=== PATIENT | female | born 1990 | race Two or more races ===

== ENCOUNTER 2019-09-19 11:45 | Emergency (ER) | payer SELFPAY ==
[~2019-09-19] VITALS: Ht 157.5 cm; Wt 81.8 kg
[2019-09-19 12:13] VITALS: Ht 157.5 cm; Wt 81.8 kg
[2019-09-19 12:56] LABS: HCG SERUM POSITIVE (NEGATIVE)
[2019-09-19 12:59] LABS: CALC OSMOLALITY 277 mosm/kg (275-300); CALCIUM 9.2 mg/dL (8.5-10.1); CARBON DIOXIDE 27.4 mmol/L (21.0-32.0); CHLORIDE - SERUM 103 mmol/L (98-107); CREATININE - SERUM 0.7 mg/dL (0.6-1.3); GLUCOSE 88 mg/dL (74-106); POTASSIUM - SERUM 3.6 mmol/L (3.5-5.1); SODIUM 141 mmol/L (136-145); UREA NITROGEN 6 mg/dL (7-18); eGFR NON AFRICAN AMERICAN > 90 mL/min (90-120)
[2019-09-19 13:04] LABS: ALBUMIN 4.2 g/dL (3.4-5.0); ALKALINE PHOSPHATASE 75 U/L (46-116); ALT (SGPT) 28 U/L (10-68); AMYLASE - SERUM 49 U/L (25-115); BILIRUBIN - TOTAL 0.58 mg/dL (0.2-1.3); LIPASE 110 U/L (73-393); PROTEIN - SERUM 8.4 g/dL (6.4-8.2)
[2019-09-19 13:13] LABS: BASOPHILS 0.4 % (0-2); EOSINOPHILS 1.8 % (0-7); HEMATOCRIT 41.4 % (36.0-48.0); HEMOGLOBIN 14.4 g/dL (12-16); IMMATURE GRANULOCYTES 0.3 % (0-5); LYMPHOCYTES 26.6 % (15-50); MCH 31.7 pg (26.0-34.0); MCHC 34.8 g/dL (31.0-37.0); MCV 91.2 fL (80.0-100.0); MEAN PLATELET VOLUME 9.1 fL (7.4-10.4); MONOCYTES 9.8 % (2-11); NEUTROPHILS 61.1 % (40-80); PLATELET COUNT 329 10x3/uL (130-400); RBC 4.54 10x6/uL (4.00-5.40); RDW 12.3 % (11.5-14.5); WBC 13.8 10x3/uL (4.8-10.8)
[2019-09-19 13:24] LABS: APPEARANCE SL CLDY (CLEAR); BACTERIA MODERATE /hpf (NEGATIVE); BILIRUBIN NEGATIVE (NEGATIVE); COLOR PINK (YELLOW); EPITHELIAL CELLS 0-5 /hpf (0-5); GLUCOSE NEGATIVE (NEGATIVE); KETONE NEGATIVE (NEGATIVE); MUCUS <1+ /lpf (NONE SEEN); NITRITE NEGATIVE (NEGATIVE); PROTEIN 1+ mg/dL (NEGATIVE); RED CELLS - URINE >50 /hpf (0-5); SPECIFIC GRAVITY 1.015 (1.005-1.020); WHITE CELLS - URINE 0-5 /hpf (NEGATIVE)
[2019-09-19 13:25] LABS: APTT 29.6 SECONDS (22.8-39.4); INR 1.15 (0.85-1.17); PROTIME 14.2 SECONDS (11.6-15.0)
[2019-09-19 17:28] VITALS: BP 116/65
== END 2019-09-19 17:25 | disposition home or self-care (01) ==
LOC: D.ER 11:45
PROVIDERS: Emergency Medicine
DX: O26.90 Pregnancy related conditions, unspecified, unspecified trimester (principal); N93.9 Abnormal uterine and vaginal bleeding, unspecified; N94.6 Dysmenorrhea, unspecified; Z32.01 Encounter for pregnancy test, result positive; R10.9 Unspecified abdominal pain

== ENCOUNTER 2019-09-21 16:48 | Inpatient (IN) | payer MEDICAID ==
[~2019-09-21] VITALS: Ht 157.5 cm; Wt 81.8 kg
--- NOTE | ~2019-09-21 | OP ---
PATIENT NAME: WENDY BLANKENSHIP MEDICAL RECORD: [id number] LOCATION:[id number] ADMISSION DATE:09/23/19 SURGEON: WALTER PITT DO DATE OF OPERATION: 09/23/2019 PREOPERATIVE DIAGNOSIS: Suspected ruptured ectopic . POSTOPERATIVE DIAGNOSES: Confirmed ruptured ectopic , extensive intra-abdominal adhesions. PRIMARY SURGEON: Walter Pitt DO BLOW TORCH BURNER SURGEON: Dr. Angel ANESTHESIA: Trent Rene CRNA. PROCEDURES: Diagnostic laparoscopy converted to right salpingectomy and lysis of adhesions. FINDINGS: Extensive intra-abdominal adhesions, ruptured right ectopic . SPECIMENS: Right fallopian tube, products of conception. ESTIMATED BLOOD LOSS: 300 cc. IV FLUIDS: 800 cc. URINE OUTPUT: 200 cc clear urine. COMPLICATIONS: None. CONDITION: Stable. PROCEDURE IN DETAIL: The risks, benefits, alternatives and indications of the procedure were discussed with the patient. She voiced an understanding of the procedure and signed the consent. She was taken to the OR where general anesthesia was administered and found to be adequate. She was placed in the dorsal lithotomy position. She was prepped and draped in normal sterile fashion. Urinary catheter was placed. Marcaine was placed in the umbilical fold and a 5-mm incision was created in the umbilicus. The abdomen was elevated and a 5-mm port was placed with the laparoscope for visualization. Pneumoperitoneum was achieved to 15 mmHg; however, due to extensive intra-abdominal adhesions, it was determined that the procedure was unable to be performed laparoscopically and the case was converted to a laparotomy. Pneumoperitoneum was released and the 5-mm port was removed. A Pfannenstiel skin incision was made with the scalpel and carried down to the underlying layer of the fascia with the Bovie. The fascia was incised in the midline and extended laterally. The inferior aspects of the fascial incision was grasped with Deanne clamps and the rectus muscle was dissected off sharply. Attention was then turned to the superior aspect of the fascial incision. The rectus muscle was dissected off in a similar fashion. The rectus muscle was grasped with 2 Allises and down to the level of the peritoneum with the scalpel. The peritoneum was noted to be free of adherent bowel and entered bluntly. Extensive intra-abdominal adhesions were noted and these adhesions OPERATIVE REPORT [id number] BLANKENSHIP,WENDY were taken down with a combination of blunt and sharp dissection. Uterus was elevated out of the pelvis and a ruptured right ectopic was noted in the right fallopian tube. The fallopian tube and ectopic was clamped with a large Jojo and amputated and the fallopian tube site was closed with 0 Vicryl suture with good hemostasis noted. The pelvis was copiously irrigated in order to remove the hemoperitoneum and a moist laparotomy sponge was used to assure complete removal of blood clots and fluid from the abdominal cavity. The site of the removal of the fallopian tube was reinspected and noted to be hemostatic and the uterus was returned back to the pelvis. The rectus muscle was closed with 2-0 Monocryl in a running fashion with good hemostasis. The fascial incision was closed with 0 Vicryl in a running fashion with good hemostasis. The subcutaneous fat was closed with 2-0 plain gut in a running fashion with good hemostasis. The skin was closed in a subcuticular fashion with 3-0 Monocryl and Dermabond covering. All needle, lap, sponge, and instrument counts were correct times 2. The patient tolerated the procedure well and she was taken to the recovery room in stable condition. TRANSINT:[id number] Voice Confirmation ID: [id number] DOCUMENT ID: [id number] WALTER PITT DO CC: [id number] DICTATION DATE: 10/12/19921 SAFETY AIDE: 10/12/19 1037 DIS IN 09/24/[address] [facility] [address] [place] [address]
--- NOTE | 2019-09-21 23:11 | NUR ---
PT BACK FROM ULTRASOUND AT THIS TIME. DENIES NEEDS, CALLL LIGHT WITHIN REACH.
[2019-09-22] VITALS (7 sets, daily range): BP systolic 101–113; BP diastolic 52–73; Ht 157.5 cm; Wt 81.8 kg
[2019-09-22 00:41] LABS: HEMATOCRIT 39.6 % (36.0-48.0); HEMOGLOBIN 13.7 g/dL (12-16); LYMPHOCYTES 37.5 % (15-50); MCH 30.9 pg (26.0-34.0); MCHC 34.6 g/dL (31.0-37.0); MCV 89.2 fL (80.0-100.0); MEAN PLATELET VOLUME 8.8 fL (7.4-10.4); NEUTROPHILS 59.3 % (40-80); PLATELET COUNT 309 10x3/uL (130-400); RBC 4.44 10x6/uL (4.00-5.40); RDW 12.2 % (11.5-14.5); WBC 14.2 10x3/uL (4.8-10.8)
[2019-09-22 00:48] LABS: CALC OSMOLALITY 277 mosm/kg (275-300); CALCIUM 8.6 mg/dL (8.5-10.1); CARBON DIOXIDE 27.5 mmol/L (21.0-32.0); CHLORIDE - SERUM 103 mmol/L (98-107); CREATININE - SERUM 0.7 mg/dL (0.6-1.3); GLUCOSE 105 mg/dL (74-106); SODIUM 139 mmol/L (136-145); UREA NITROGEN 13 mg/dL (7-18); eGFR NON AFRICAN AMERICAN > 90 mL/min (90-120)
[2019-09-22 00:54] LABS: ALBUMIN 4.2 g/dL (3.4-5.0); ALKALINE PHOSPHATASE 84 U/L (46-116); ALT (SGPT) 30 U/L (10-68); BILIRUBIN - TOTAL 0.51 mg/dL (0.2-1.3); PROTEIN - SERUM 8.6 g/dL (6.4-8.2)
--- NOTE | 2019-09-22 02:52 | NUR ---
PT RECEIVED FROM ED VIA WC TO ROOM 1821 AND TRANSFERRED SELF TO BED. PT ACCOMPANIED BY 2 SMALL CHILDREN.
--- NOTE | 2019-09-22 03:45 | NUR ---
THIS RN AND CLINICAL DIETICIAN IN ROOM WITH PT TO OBTAIN INFORMATION FOR QUICK START, ADMISSION ASSESSMENT, SUICIDE RISK, HOME MEDICATIONS, AND PREFERRED PHARMACY.
--- NOTE | 2019-09-22 04:45 | NUR ---
BLOOD AND ANESTHESIA CONSENTS OBTAINED WITH EXPLANATION OF BOTH BY IVORY POLISHER. PT VERBALIZD UNDERSTANDING. RN ALSO AT BEDSIDE.
[2019-09-22 04:46] LABS: BASOPHILS 0.3 % (0-2); EOSINOPHILS 2.7 % (0-7); HEMATOCRIT 40.6 % (36.0-48.0); HEMOGLOBIN 13.9 g/dL (12-16); IMMATURE GRANULOCYTES 0.2 % (0-5); LYMPHOCYTES 40.3 % (15-50); MCH 31.4 pg (26.0-34.0); MCHC 34.2 g/dL (31.0-37.0); MONOCYTES 5.2 % (2-11); NEUTROPHILS 51.3 % (40-80); PLATELET COUNT 302 10x3/uL (130-400); RBC 4.42 10x6/uL (4.00-5.40); RDW 12.3 % (11.5-14.5); WBC 13.2 10x3/uL (4.8-10.8)
[2019-09-22 04:52] LABS: MCV 91.9 fL (80.0-100.0)
[2019-09-22 04:55] LABS: APTT 29.8 SECONDS (22.8-39.4); INR 1.18 (0.85-1.17); PROTIME 14.5 SECONDS (11.6-15.0)
--- NOTE | 2019-09-22 05:00 | NUR ---
ADMISSION ASSESSMENT HISTORY, MED REC, PREFERRED PHARMACY, SUICIDE RISK, VS, AND ASSESSMENT COMPLETE WITH ASSISTANCE FROM HANG GLIDING INSTRUCTOR. RN REMAINED AT BEDSIDE TO ASK QUESTIONS TO HANG GLIDING INSTRUCTOR TO BE ASKED TO PT AND TO RECEIVE ANSWERS GIVEN TO HANG GLIDING INSTRUCTOR FROM PT.
--- NOTE | 2019-09-22 05:18 | NUR ---
CALL PLACED TO DR. SCOTT.
--- NOTE | 2019-09-22 05:30 | NUR ---
DR. SCOTT RETURNED CALL TO UNIT. INFORMED MD OF INFORMATION OBTAINED FROM PT THROUGH INSTRUCTOR WEAVING. INFORMED HIM THAT PT REPORTS THAT SHE CAME TO [facility] ON THURSDAY WITH HEAVY BLEEDING, WAS TOLD SHE WAS AND WAS GIVEN A SHOT. I INFORMED HIM THAT THE PT IS REPORTING THAT THE BLEEDING IS LIGHT SINCE RECEIVING THE SHOT, BUT SHE IS C/O LOWER ABD PAIN AND PAIN IN HER BACK ON THE LEFT SIDE THAT SOMETIMES RADIATES TO HER RIGHT SIDE. I INFORMED HIM THAT SHE IS RATING IT AT 5/10. LAB RESULTS WERE GIVEN TO HIM. NEW ORDERS RECEIVED TO START NS AT 125ML/HR AND A DILAUDID AIRFIELD MANAGER 0.2MG Q10 MINUTES WITH A 4MG LOCKOUT. HE ALSO STATED THAT HE WILL PUT IN AN ORDER TO HAVE HER SCANNED. HE WANTS HER TO REMAIN NPO AT THIS TIME.
--- NOTE | 2019-09-22 05:48 | NUR ---
DILAUDID FUR MATCHER INITIATED PER DR. SCOTT'S ORDER. PT INSTRUCTED ON USE OF FUR MATCHER BUTTON USING ITRANSLATE. PER ITRANSLATE, PT ACKNOWLEDGES AND PUSHES FUR MATCHER BUTTON AT THIS TIME. BED IN LOW POSITION, SRUP X2, CALL LIGHT WITHIN PTS REACH.
--- NOTE | 2019-09-22 07:00 | NUR ---
SBAR HANDOFF RECEIVED FROM OMAR FERGUSON. PATIENT REMAINS STABLE IN BED WITH NO SIGNS OF COMPLICATIONS OR DISTRESS. REPORTS PAIN AT LEVEL 0 ON 0-10 SCALE. DILAUDID DOCUMENT SPECIALIST INFUSING AT RX PARAMETERS TO RIGHT AC PIV WHICH IS ALSO INFUSING NACL AT 125ML/HR PER IV PUMP; NO SIGNS OF COMPLICATIONS AT IV INSERTION SITE OR PERIPHERALLY. SLEEPING BUT AWAKENS W/VERBAL STIMULI. SKIN WARM DRY AND PINK.
--- NOTE | 2019-09-22 07:35 | NUR ---
DR David PITT AT BEDSIDE SPEAKING MAORI TO PATIENT AND GETTING INFORMED CONSENT FOR POSSIBLE SURGERY.
--- NOTE | 2019-09-22 07:45 | NUR ---
VSS. HOMANS NEGATIVE. BBS= AND CTA. NO SIGNS OF DISTRESS. BOWEL SOUNDS DISTANT ALL 4 ABD QUADRANTS. REMAINS NPO.
--- NOTE | 2019-09-22 08:45 | NUR ---
CONT SLEEPING. O2 SAT 94% WHEN ASLEEP, 97% WHEN AWAKENED. SKIN WARM DRY AND PINK. NO SIGNS OF COMPLICATIONS. SKIN WARM DRY AND PINK.
--- NOTE | 2019-09-22 09:45 | NUR ---
DR David PITT AT BEDSIDE EXPLAINING TO PATIENT IN [place] THAT SHE LIKELY HAS A RUPTURED ECTOPIC AND THAT SURGERY WILL BE REQUIRED. PATIENT REMAINS STABLE; NO SIGNS OF DISTRESS NOTED OR REPORTED. SKIN WARM DRY AND PINK. O2 SAT 95% WHEN SLEEPING, 97% WHEN AWAKE. IV PATENT.
--- NOTE | 2019-09-22 10:15 | NUR ---
ASSISTED TO BATHROOM TO VOID 200ML CLEAR SILVANA URINE. LANGUAGE LINE CALLED TO VERIFY PATIENT UNDERSTANDS SHE IS GOING TO SURGERY, WILL HAVE A LAPOROSCOPIC ENTRY THRU UMBILICUS BUT POSSIBILITY OF A BIGGER INCISION IF NEEDED. ALSO DID POST OP PROCEDURES TEACHING: TCDB Q 1 HR, ASK FOR PAIN AND NAUSEA MEDS, POSSIBILITY OF URINARY CATHETER. PATIENT VERBALIZES UNDERSTANDING OF SAME PER SHOT POLISHER AND INSPECTOR DARLENE # [id number]; ALL QUESTIONS ANSWERED. ASSISTED BACK TO BED AND TO GET BRA AND PANTIES OFF. PIV PATENT W/NO SIGNS COMPLICATIONS. REPORTS PAIN AT LEVEL 4 AFTER GETTING UP AND BACK TO BED. MANAGER ADVERTISING BUTTON OFFERED; PATIENT PUSHED FOR DOSE.
--- NOTE | 2019-09-22 11:15 | NUR ---
premeds given. czech speaking friend at bedside. patient requests to void again but took receptacle out of toilet. states she voided. ready for o.r.
--- NOTE | 2019-09-22 11:25 | NUR ---
to OR PER BED, ACCOMPANIED BY OR TECHS. REMAINS NPO EXCEPT FOR 2 SIPS WATER WITH FRANCOIS. VSS.
--- NOTE | 2019-09-22 16:07 | NUR ---
RECEIVED FROM OR PER BED ON 2L/M O2; PIV RIGHT AC PATENT WITH RL 125ML/HR PER IV PUMP; MCCARTNEY PATENT W/CLEAR SILVANA URINE. ABD DSG CDI TO LOWER TRANSVERSE ABD; DERMOBOND INTACT TO UMBILICAL INCISION WITH MARGINS WELL APPROXIMATED. VSS. COMPLAINS OF PAIN AND SLIGHT NAUSEA. SCD BLE.
--- NOTE | 2019-09-22 16:10 | NUR ---
SUPERVISOR TITLE 031005 NOTIFIED TO ORIENT PATIENT TO POST OP PROCEDURES. NO SIGNS OF COMPLICATION. VSS. BBS= AND CTA. NO BOWEL SOUNDS AUSCULTATED. SKIN WARM DRY AND PINK, SLIGHTLY PALE. GARCIA.
--- NOTE | 2019-09-22 16:25 | NUR ---
DANNI ICE CHIPS AND CLEAR LIQ WELL. DENIES NAUSEA. INCENTIVE SPRIROMETRY TO 1000 AND SPLINTING ABD INCISION FOR COUGHING.
--- NOTE | 2019-09-22 17:30 | NUR ---
DR PITT AT BEDSIDE. UOP 50ML. REMAINS STABLE WITH NO SIGNS OF COMPLICATIONS.
--- NOTE | 2019-09-22 18:00 | NUR ---
REMAINS STABLE WITH NO SIGNS OF DISTRESS NOTED OR REPORTED. REPORTS PAIN WHEN AWAKE BUT FALLS TO SLEEP EASILY. VSS. MOVING IN BED INDEPENDENTLY. IV PATENT
--- NOTE | 2019-09-22 18:30 | NUR ---
SEE VITAL SIGNS SHEET FOR POST OP VITALS.
--- NOTE | 2019-09-22 19:45 | NUR ---
PT RESTING IN BED. COMMUNICATED WITH PT VIA VIRTUAL CUSTOMER ASSISTANT SERVICES REGARDING POC WHICH INCLUDED HEAD TO TOE ASSESSMENT, VS, PAIN MANAGEMENT, FC, CL DIET, TCDB, SCDS,IV. QUESTIONS WERE ANSWERED AT THE TIME. BS CLEAR IN ALL LOBES. HYPOACTIVE BS X4 QUADRANTS, LOW TRANSVERSE ABD INCISION COVERED WITH DRESSING C/D/I. FC TO GRAVITY DRAINING CONCENTRATED YELLOW URINE AND SECURED TO LEG WITH CATH SECURE. SMALL AMOUNT OF VAGINAL BLEEDING NOTED ON PERIPAD. FC AND PERIPAD DONE AT THIS TIME. SCDS TO BLE. IV PATENT AND INFUSING NS @125ML/HR. NO REDNESS OR TENDERNESS NOTED TO SITE. ICE CHIPS AND CLEAR LIQUIDS PROVIDED. PT TCDP USING PILLOW FOR SUPPORT WITH INSTRUCTION FROM RN. PT VERBALIZED UNDERSTANDING OF POC THROUGH ASSEMBLY LINE BRAZER. BED IN LOW POSITION, SRUP X2, CALL LIGHT WITHIN PTS REACH. ASSEMBLY LINE BRAZER UNDERSTANDING POC. BED
--- NOTE | 2019-09-22 20:14 | NUR ---
MORPHINE 2MG SIVP GIVE FOR C/O INCISIONAL PAIN.IV PATENT.
--- NOTE | 2019-09-22 21:05 | NUR ---
PT RESTING IN BED WITH EYES CLOSED. PT EASILY AROUSED TO TCDB. PT DENIES ANY C/O PAIN AT THIS TIME. BED IN LOW POSITION, SRUP X2, CALL LIGHT WITHIN PTS REACH.
--- NOTE | 2019-09-22 22:00 | NUR ---
PT RESTING IN BED. VS OBTAINED. ICE CHIPS AND CL PROVIDED. PT DENIES ANY C/O PAIN. BED IN LOW POSITION, SRUP X2, CALL LIGHT WITHIN PTS REACH.
--- NOTE | 2019-09-22 23:00 | NUR ---
PT RESTING IN BED. VS OBTAINED. FC EMPTIED. PT TCDP AND REPOSTIONED TO HER LEFT SIDE WITH PILLOW PLACED TO HER BACK FOR SUPPORT. PT DENIES ANY C/O PAIN AT THIS TIME. SCDS ON AND WORKING. BED IN LOW POSITION. SRUP X2. CALL LIGHT WITHIN PTS REACH.
[2019-09-23] VITALS (7 sets, daily range): BP systolic 96–111; BP diastolic 47–62
--- NOTE | 2019-09-23 00:20 | NUR ---
PT RESTING IN BED. VS OBTAINED. FC EMPTIED. PERIPAD CHANGED. SCANT AMOUNT OF VAGINAL BLEEDING NOTED. FRESH ICE PACK PLACED TO ABD INCISION. IV PATENT AND WITHOUT REDNESS OR TENDERNESS. PT INSTRUCTED ON USE OF IS AND PROVIDED RETURN DEMONSTRATION. ICE CHIPS AND CL PROVIDED. BED IN LOW POSITION. SRUP X2. CALL LIGHT WITHIN PTS REACH.
--- NOTE | 2019-09-23 02:01 | NUR ---
PT RESTING COMFORTABLY IN BED WITH EYES CLOSED. NO DISTRESS NOTED. NEW BAG OF IV FLUID HUNG. BED IN LOW POASITION. SRUP X2. CALL LIGHT WITHIN PTS REACH.
--- NOTE | 2019-09-23 04:20 | NUR ---
PT RESTING COMFORTABLY IN BED. VS OBTAINED. FC EMPTIED. PERIPAD CHANGED. NO VAGINAL BLEEDING NOTED. FRESH ICE PACK PLACED TO ABD INCISION. SCHEDULED TORADOL GIVEN SIVP PER MD ORDER. PT TCDB AND REPOSITIONED TO A RIGHT TILT. ICE CHIPS, CL DRINK, AND JELLO PROVIDED. BED IN LOW POSITION. SRUP X2. CALL LIGHT WITHIN PTS REACH.
--- NOTE | 2019-09-23 06:15 | NUR ---
PT RESTING IN BED WITH EYES CLOSED BUT EASILY AROUSED WHEN RN ENTERED ROOM. PERIPAD CHECKED AND NO VAGINAL BLEEDING NOTED. ABD INCISION COVERED WITH DRESSING C/D/I. FC EMPTIED. NO REQUEST MADE. BED IN LOW POSITION. SRUP X2. CALL LIGHT WITHIN PTS REACH.
[2019-09-23 06:48] LABS: BASOPHILS 0.1 % (0-2); EOSINOPHILS 0.1 % (0-7); HEMATOCRIT 34.9 % (36.0-48.0); HEMOGLOBIN 11.8 g/dL (12-16); IMMATURE GRANULOCYTES 0.2 % (0-5); LYMPHOCYTES 14.3 % (15-50); MCH 31.1 pg (26.0-34.0); MCHC 33.8 g/dL (31.0-37.0); MCV 92.1 fL (80.0-100.0); MEAN PLATELET VOLUME 9.2 fL (7.4-10.4); NEUTROPHILS 77.3 % (40-80); PLATELET COUNT 286 10x3/uL (130-400); RBC 3.79 10x6/uL (4.00-5.40); RDW 12.2 % (11.5-14.5)
[2019-09-23 06:59] LABS: ALKALINE PHOSPHATASE 53 U/L (46-116); BILIRUBIN - TOTAL 0.46 mg/dL (0.2-1.3); CARBON DIOXIDE 23.1 mmol/L (21.0-32.0); CHLORIDE - SERUM 108 mmol/L (98-107); CREATININE - SERUM 0.6 mg/dL (0.6-1.3); GLUCOSE 110 mg/dL (74-106); POTASSIUM - SERUM 3.6 mmol/L (3.5-5.1); PROTEIN - SERUM 6.5 g/dL (6.4-8.2); SODIUM 140 mmol/L (136-145); eGFR NON AFRICAN AMERICAN > 90 mL/min (90-120)
[2019-09-23 07:01] LABS: ALBUMIN 3.1 g/dL (3.4-5.0); ALT (SGPT) 17 U/L (10-68); CALC OSMOLALITY 276 mosm/kg (275-300); UREA NITROGEN 4 mg/dL (7-18)
[2019-09-23 07:18] LABS: WBC 17.7 10x3/uL (4.8-10.8)
--- NOTE | 2019-09-23 07:54 | NUR ---
REPORT RECIEVED. PT SITTING UP IN BED. BREAKFAST TRAY SET UP FOR PT, AND POSITIONED PT TO BE ABLE TO EAT. RR EVEN AND UNLABORED. NO DISTRESS NOTED. BED LOCKED AND IN LOWEST POSITION, CALL LIGHT WITHIN REACH. WILL CTM
--- NOTE | 2019-09-23 09:37 | NUR ---
DR. PITT IN ROOM W/ PT AT THIS TIME.
--- NOTE | 2019-09-23 09:51 | NUR ---
SL PTS IV AND DC MCCARTNEY WITH 500CC OUTUT. PT REPORTS A PAIN LEVEL OF 7/10. ADMINISTERED PAIN MEDS PER ORDER AT THIS TIME. WILL CTM
--- NOTE | 2019-09-23 10:21 | NUR ---
ASSISTED PT TO BATH. PT WAS IN ALOT OF PAIN DURING TRANSFER. COMPLAINED OF LOWER BACK PAIN. SHE HAD A SCANT AMOUNT OF BLOOD ON HER PAD. CHANGED AT THIS TIME. PT VOIDED 200CC OF PALE URINE WITH SMALL CLOTS PRESENT. ASSISTED PT BACK TO BED. APPLIED ICE TO LOWER ABD ICISION. WILL CTM
--- NOTE | 2019-09-23 11:20 | NUR ---
ANESTH. IN ROOM W/ PT AT THIS TIME.
--- NOTE | 2019-09-23 13:00 | NUR ---
PT SITTING UP IN BED AWAKE & ALERT.SRUPX2 CALL LIGHT W/IN REACH.
--- NOTE | 2019-09-23 14:00 | NUR ---
PT ASSSISTED UP TO RR W/ SCANT AMOUNT OF BLOOD ON PAD. PT C/O ABD. PAIN SEE EMAR FOR PAIN MEDS GIVEN.
--- NOTE | 2019-09-23 16:13 | NUR ---
ASSISTED PT TO BATHROOM. PT HAD A SCANT AMOUNT OF BLOOD TO PAD. CHANGED PAD. VSS. MOTRIN GIVEN AT THIS TIME PER JAN. WILL CTM
--- NOTE | 2019-09-23 17:00 | NUR ---
PT ASSSITED UP TO RESTROOM. LINENS CHANGED WHILE IN RESTROOM. PT WALKED AROUND ROOM AFTER USING RESTROOM, PT REFUSES TO WALK IN SR AT THIS TIME.
--- NOTE | 2019-09-23 19:50 | NUR ---
PT RESTING IN BED WITH VISITORS ON COUCH. ALL COMMUNICATION WITH PT WAS DONE WITH THE USE OF THE DESIGNATED SOCIAL MEDIA COMMUNITY MANAGER. SHIFT ASSESMENT COMPLETE PER FLOW SHEET. VSS. BS CLEAR. ABDOMEN DISTENDED BUT SOFT. BS HYPOACTIVE IN ALL 4 QUADRANTS. PT REPORTS THAT SHE HAS PASSED FLATUS. INCISION TO UMBILICUS C/D/I WITH DERMABOND. LOW TRANSVERSE ABD INCISION C/D/I WITH DERMABOMD. FRESH ICE PACK PLACED TO INCISION SITE. SCANT AMOUNT OF VAGINAL BLEEDING NOTED TO PERIPAD. SCDS ON BLE, BUT NOT WORKING. NO EDEMA NOTED TO BLE. SL TO RIGHT AC WITHOUT REDNESS OR TENDERNESS. PT C/O PAIN TO HER NECK AND SHOULDER ON THE RIGHT SIDE AND IS USING ICE FOR COMFORT. POPSICLE GIVEN PER PT REQUEST FOR SORE THROAT. ICE PITCHER FILLED. POC DISCUSSED. PT DENIED ANY QUESTIONS. PT INSTRUCTED TO USE CALL LIGHT. BED IN LOW POSITION. SRUP X2. CALL LIGHT WITHIN PTS REACH. PTS BLOOD TYPED CHECKED IN CHART AND IS O+.
--- NOTE | 2019-09-23 21:26 | NUR ---
SITTING ON SOFA WITH FRIEND SMILING AND LAUGHING. FRIEND STATES THAT SHE HAS BEEN WALKING IN ROOM ALSO. INFORMED PT. THAT SHE NEEDS TO MAKE POSITION CHANGES GRADUALLY IE: SIT ON SIDE OF BED PRIOR TO GETTING UP INSTEAD OF RAPIDLY GETTING UP. ALSO WHEN SITTING TO STANDING. FRIEND TRANSLATED FOR PT. INFORMATION GIVEN. PT. STATES "OK" TO INFORMATION. EXPLAINED THAT SLOW CHANGES IN POSITION CAN DECREASE CHANCES OF DIZZINESS.
--- NOTE | 2019-09-23 21:35 | NUR ---
DR. PITT ON UNIT AND VERIFIED THAT IV CAN BE SALINE LOCKED. REPORTS TO YES SALINE LOCK IV. GENERAL REPORT ON PATIENT STATUS GIVEN.
--- NOTE | 2019-09-23 21:43 | NUR ---
MOTRIN GIVEN SCHEDULED. PT. REPORTS PAIN WAS A 3 OF 10 ON PAIN SCALE WHICH SHE BOTH VERBALIZED AND SHOWED BY HOLDING UP THREE FINGERS. TALKING ON PHONE AT PRESENT.
--- NOTE | 2019-09-23 21:47 | NUR ---
ADDITIONAL POPSICLE SERVED.
--- NOTE | 2019-09-23 22:30 | NUR ---
PT RESTING IN ED. INFORMATION OBTAINED FROM PT USING DESIGNATION AUTOMOTIVE ELECTRICAL HELPER LINE. VSS. PT DENIES ANY C/O PAIN. PT REQUEST FOR HER SL TO BE REMOVED. EXPLAINED TO HER THAT SHE HAS LAB WORK SCHEDULED FOR THE AM AND IT IS RECOMMENDED THAT THE SL BE LEFT IN PLACE UNTIL LAB RESULTS ARE BACK. SL FLUSHED AT THIS TIME WITHOUT DIFFICULTY. NO REDNESS OR TENDERNESS TO SITE. FRESH ICE PACK PLACED TO ABD INCISION. QUESTIONS ANSWERED. PT VERBALIZED UNDERSTANDING OF POC. BED IN LOW POSITION. SRUP X2. CALL LIGHT WITHIN PTS REACH.
--- NOTE | 2019-09-24 00:15 | NUR ---
PT RESTING IN BED WITH EYES CLOSED. NO DISTRESS NOTED. CALL LIGHT WITHIN PTS REACH.
--- NOTE | 2019-09-24 01:20 | NUR ---
PT RESTING IN BED WITH EYES CLOSED. NO DISTRESS NOTED. CALL LIGHT WITHIN PTS REACH.
[2019-09-24 03:55] VITALS: BP 115/72
--- NOTE | 2019-09-24 03:55 | NUR ---
VSS. PT ASSTISTED UP TO BATHROOM AND IS VOIDING WITHOUT DIFFICULTY. PT BACK TO BED AND IS C/O INCISIONAL PAIN. WILL PROVIDE PERCOCET AND SCHEDULED MOTRIN. WATER PITCHER FILLED. FRESH ICE PACK PLACED TO ABD INCISION. BED IN LOW POSITION. SRUP X2. CALL LIGHT WITHIN PTS REACH.
--- NOTE | 2019-09-24 04:10 | NUR ---
PERCOCET 5 X1 TABLET AND MOTRIN 600MG GIVEN PO FOR C/O INCISIONAL PAIN.
--- NOTE | 2019-09-24 05:30 | NUR ---
PT RESTING IN BED WITH EYES CLOSED. NO DISTRESS NOTED. CALL LIGHT WITHIN PTS REACH.
--- NOTE | 2019-09-24 06:20 | NUR ---
PT RESTING IN BED WITH EYES CLOSED. NO DISTRESS NOTED. CALL LIGHT WITHIN PTS REACH.
--- NOTE | 2019-09-24 06:55 | NUR ---
PHARMACY NOTIFIED OF PERCOCET AND MOTRIN GIVEN AT 0410 TO PT FOR C/O INCISIONAL PAIN NOT DOCUMENTING ON EMAR. PHARMACIST ON DUTY STATED TO MAKE A NARRATIVE NOTE.
[2019-09-24 07:10] LABS: BASOPHILS 0.2 % (0-2); EOSINOPHILS 2.4 % (0-7); HEMATOCRIT 37.1 % (36.0-48.0); HEMOGLOBIN 12.5 g/dL (12-16); IMMATURE GRANULOCYTES 0.2 % (0-5); LYMPHOCYTES 40.6 % (15-50); MCH 31.3 pg (26.0-34.0); MCHC 33.7 g/dL (31.0-37.0); MCV 92.8 fL (80.0-100.0); MEAN PLATELET VOLUME 9.1 fL (7.4-10.4); MONOCYTES 7.7 % (2-11); NEUTROPHILS 48.9 % (40-80); PLATELET COUNT 284 10x3/uL (130-400); RDW 12.6 % (11.5-14.5); WBC 13.1 10x3/uL (4.8-10.8)
--- NOTE | 2019-09-24 07:38 | NUR ---
AM ASSESSMENT COMPLETED, NAD NOTED. VSS, AFEBRILE, AMBULATORY IN ROOM AND UP TO BR, VOIDS WITHOUT DIFFICULTY, LUNGS CTAB, HEART RRR, ABD MILDLY DISTENDED BUT SOFT, PASSING FLATUS, GARCIA FREELY, NEGATIVE STANFORD'S SIGN B LE. CALL LIGHT IN EASY REACH, BED IN LOW POSITION, SIDE RAILS UP X2, WILL MONITOR FOR CHANGE IN STATUS.
--- NOTE | 2019-09-24 07:48 | NUR ---
SCHEDULED IBUPROFEN GIVEN PER MD ORDERS. WHEN ASKED ABOUT PAIN SCALE, PT STATES "SIX". WILL MONITOR.
--- NOTE | 2019-09-24 08:34 | NUR ---
PT USING CALL LIGHT FOR ASSISTANCE. REQUESTS LIGHTS TURNED OFF AND LINENS PULLED UP OVER HER WHILE SHE LIES IN BED. CONSUMED 100% BREAKFAST PROVIDED, CUP OF ICE WATER PROVIDED UPON REQUEST. DENIES PAIN AT PRESENT. NO OTHER NEEDS REQUESTED, WILL MONITOR.
--- NOTE | 2019-09-24 09:50 | NUR ---
ROUNDS COMPLETED, PT OOB TO BR, VOIDING WITHOUT DIFFICULTY AND PASSING FLATUS, NO BM YET. ENCOURAGED AMBULATION IN HALLS, PT STATES UNDERSTANDING. CALL LIGHT IN EASY REACH OF PT. WILL MONITOR.
--- NOTE | 2019-09-24 10:35 | NUR ---
ROUNDS COMPLETED, PT LYING SUPINE IN BED, RESP EVEN AND UNLABORED, NAD NOTED. WILL MONITOR. CALL LIGHT IN EASY REACH.
[2019-09-24 11:14] VITALS: BP 111/59
--- NOTE | 2019-09-24 11:24 | NUR ---
ROUNDS COMPLETED, CUP OF ICE WATER, JELLO, AND ICE PACK OVERLAY REFRESHED. VSS. AFEBRILE. PT C/O DISCOMFORT TO RIGHT A/C SITE, SALINE LOCK DISCONTINUED WITH NOTED BENT CATHETER ON REMOVAL. PRESSURE DRESSING APPLIED TO SITE, TOLERATES PROCEDURE WELL. LOW TRANSVERSE INCISION CDI WITH DERMABOND, MILD TENDERNESS TO TOUCH, NOTED DISCOLORATION/BRUISING TO SUPERIOR ASPECT OF INCISION ON LEFT SIDE. NO OOZING/DRAINAGE/EDEMA OR WARMTH NOTED. BOWEL SOUNDS ACTIVE, PT DENIES BM. GARCIA FREELY, ENCOURAGED TO AMBULATE, PT REFUSES NOW, WILL AMBULATE AFTER LUNCH.
--- NOTE | 2019-09-24 12:08 | NUR ---
PT UP TO BR TO VOID, PRN MED GIVEN FOR C/O INCISIONAL PAIN. CUP OF WATER PROVIDED PER REQUEST. WILL MONITOR.
--- NOTE | 2019-09-24 13:50 | NUR ---
SPOKE WITH DR PITT VIA TELEPHONE AND RELAYED PT DESIRE TO GO HOME THIS EVENING LONG SHE HAD PAIN MEDS TO TAKE. DR PITT GIVES ORDER FOR DISCHARGE AND THIS IS RELAYED TO PT. PT STATES UNDERSTANDING AND STATES SOMEONE IS COMING TO PICK HER UP BETWEEN 4:30-6PM TODAY.
[2019-09-24] MEDS ORDERED: PERCOCET 5-3251 TAB PO (14:21)
--- NOTE | 2019-09-24 14:35 | NUR ---
ROUNDS COMPLETED, LYING IN BED WITH LIGHTS DIMMED, RESP EVEN AND UNLABORED, NAD NOTED, DENIES NEEDS/CONCERNS. CALL LIGHT IN EASY REACH.
--- NOTE | 2019-09-24 15:00 | NUR ---
vss. afebrile, pt reporting being easily startled and difficulty sleeping, concerns with boyfriend after ectopic . concerns that "i don't feel right." lungs ctab, heart rrr without murmur or s3/s4, bp 115/69, hr 80, rr 16 regular and even. color pink, peripheral pulses strong/=/+2 b le, cap refill less than 2 seconds/brisk return. utilized translation line to communicate home care, need to call clinic at [phone] thursday for appointment in 2 weeks that will be free to her. encouraged use of aromatherapy, walking, prayer/meditation to manage anxiety and to notify doctor if feeling blue/hopeless/depressed and to go to er if excessive bleeding more than 1 pad per hour, chest pain, shortness of breath, red/swollen/hot leg. copies of home care/dc instructions given in swazi; pt states understanding with all questions answered to pt satisfaction. states family will come later today to take her home. pt now ambulating in mayer and smiles with this rn on passing in hallway.
--- NOTE | 2019-09-24 16:20 | NUR ---
ROUNDS COMPLETED, PT RESTING WITH EYES CLOSED AND FULLY DRESSED ON COUCH IN ROOM, PT FRIEND "LAUREEN" ALSO CALLS UNIT INQUIRING ABOUT WHEN SHE CAN BE DISCHARGED, INFORMED THAT PT HAS RECEIVED DISCHARGE INSTRUCTIONS AND ABLE TO GO HOME ANY TIME NOW. STATES WILL BE COMING BY AFTER SHE GETS OFF WORK AND WILL CALL UNIT SO THIS RN CAN TAKE PT IN WHEELCHAIR TO MEET AT FRONT OF HOSPITAL.
--- NOTE | 2019-09-24 16:53 | NUR ---
PT GIVEN PRN MED FOR C/O PAIN. ENCOURAGED TO EAT DINNER PRIOR TO FRIEND COMING TO PICK HER UP FROM HOSPITAL. PT STATES UNDERSTANDING AND IS EATING DINNER NOW.
--- NOTE | 2019-09-24 17:18 | NUR ---
pt discharged to private auto with auto [employer] driver naheed santiago with all personal belongings, denies pain at present. reviewed discharge instructions including prn use of ibuprofen per package directions, pp blues and depression risks, and need for filling prn pain med prescription at either [facility] or [facility] pharmacy that is open at this time. family/friend states understanding of all instructions provided including calling clinic thursday for follow up appointment scheduling. nad noted.
== END 2019-09-24 17:18 | disposition home or self-care (01) | DRG 819 ==
LOC: D.ER 16:48 → D.WS 09-22 01:49 → OBSVTIME 09-22 01:49 → D.WS 09-22 01:49 → D.LD 09-23 16:56
PROVIDERS: Family Medicine; Student in an Organized Health Care Education/Training Program; ADMIT Obstetrics & Gynecology; ATTEND Obstetrics & Gynecology
PROC: 10T20ZZ Resection of Products of Conception, Ectopic, Open Approach (ICD-10-PCS; principal; 2019-09-22 10:15)
DX: O00.101 Right tubal pregnancy without intrauterine pregnancy (principal); K66.0 Peritoneal adhesions (postprocedural) (postinfection)

== ENCOUNTER → 2019-10-07 | Emergency (ER) | payer SELFPAY ==
[~2019-10-07] VITALS: Ht 157.5 cm; Wt 81.8 kg
[~2019-10-07] MED LIST: KEFLEX500 MG PO; PERCOCET 5-3251 TAB PO
[2019-10-07 16:25] VITALS: BP 131/77; Ht 157.5 cm; Wt 81.8 kg
== END | disposition home or self-care (01) ==
LOC: D.ER 15:49
DX: Z98.890 Other specified postprocedural states (principal)

== ENCOUNTER 2019-10-12 18:21 | Emergency (ER) | payer SELFPAY ==
[~2019-10-12 18:21] MED LIST changes: -KEFLEX500 MG PO
[2019-10-12 18:25] VITALS: BP 123/59; Ht 157.5 cm
[2019-10-12] MEDS ORDERED: KEFLEX500 MG PO (19:59)
== END 2019-10-12 20:40 | disposition home or self-care (01) ==
LOC: D.ER 18:21
DX: G89.18 Other acute postprocedural pain (principal); Z91.19 Patient's noncompliance with other medical treatment and regimen

== ENCOUNTER 2020-01-20 19:35 | Emergency (ER) | payer SELFPAY ==
[~2020-01-20] VITALS: Ht 157.5 cm; Wt 91.0 kg
[~2020-01-20 19:35] MED LIST changes: +KEFLEX500 MG PO
[2020-01-20 19:46] VITALS: Ht 157.5 cm; Wt 91.0 kg
[2020-01-20] MEDS ORDERED: CIPRODEX OTIC7.5 ML LEFT EAR (20:57)
[2020-01-20 21:13] VITALS: BP 123/80
== END 2020-01-20 21:10 | disposition home or self-care (01) ==
LOC: D.ER 19:35
DX: H61.22 Impacted cerumen, left ear (principal)

== ENCOUNTER 2021-01-13 08:43 | Emergency (ER) | payer MEDICAID ==
[~2021-01-13] VITALS: Ht 157.5 cm; Wt 81.8 kg
[~2021-01-13 08:43] MED LIST changes: +CIPRODEX OTIC7.5 ML LEFT EAR
[2021-01-13 08:57] VITALS: Ht 157.5 cm; Wt 81.8 kg
[2021-01-13 09:15] LABS: BASOPHILS 0.3 % (0-2); EOSINOPHILS 2.5 % (0-7); HEMATOCRIT 45.1 % (36.0-48.0); HEMOGLOBIN 15.6 g/dL (12-16); IMMATURE GRANULOCYTES 0.3 % (0-5); LYMPHOCYTE ABS# 4.42 10x3/uL (1.18-3.74); LYMPHOCYTES 29.5 % (15-50); MCH 31.1 pg (26.0-34.0); MCHC 34.6 g/dL (31.0-37.0); MEAN PLATELET VOLUME 9.1 fL (7.4-10.4); MONOCYTES 4.7 % (2-11); NEUTROPHIL ABS# 9.42 10x3/uL (1.56-6.13); NEUTROPHILS 62.7 % (40-80); PLATELET COUNT 315 10x3/uL (130-400); RBC 5.01 10x6/uL (4.00-5.40); RDW 12.9 % (11.5-14.5)
[2021-01-13 09:22] LABS: BILIRUBIN NEGATIVE (NEGATIVE); KETONE NEGATIVE (NEGATIVE); NITRITE NEGATIVE (NEGATIVE); UROBILINOGEN NORMAL mg/dL (< 2)
[2021-01-13 09:24] LABS: CALC OSMOLALITY 267 mosm/kg (275-300); CALCIUM 9.4 mg/dL (8.5-10.1); CARBON DIOXIDE 25.8 mmol/L (21.0-32.0); CHLORIDE - SERUM 100 mmol/L (98-107); CREATININE - SERUM 0.6 mg/dL (0.6-1.3); GLUCOSE 128 mg/dL (74-106); POTASSIUM - SERUM 3.9 mmol/L (3.5-5.1); SODIUM 134 mmol/L (136-145); UREA NITROGEN 6 mg/dL (7-18); eGFR NON AFRICAN AMERICAN > 90 mL/min (90-120)
[2021-01-13 09:25] LABS: HCG URINE POSITIVE (NEGATIVE)
[2021-01-13 09:53] LABS: ALKALINE PHOSPHATASE 74 U/L (30-120); ALT (SGPT) 32 U/L (10-68); AMYLASE - SERUM 49 U/L (25-115); BILIRUBIN - TOTAL 0.33 mg/dL (0.2-1.3); HCG - QUANTITATIVE (MATERNAL) 1283 mIU/mL; LIPASE 105 U/L (73-393)
[2021-01-13 09:59] LABS: TROPONIN-I < 0.017 ng/mL (0.000-0.060)
[2021-01-13] MEDS ORDERED: ACETAMINOPHEN500 M1 PO (12:34)
[2021-01-13 12:49] VITALS: BP 126/76
== END 2021-01-13 12:50 | disposition home or self-care (01) ==
LOC: D.ER 08:43
PROVIDERS: Family Medicine
DX: O26.891 Other specified pregnancy related conditions, first trimester (principal); Z3A.01 Less than 8 weeks gestation of pregnancy; R10.9 Unspecified abdominal pain; R11.10 Vomiting, unspecified

== ENCOUNTER 2021-01-14 17:51 | Emergency (ER) | payer MEDICAID ==
[~2021-01-14] VITALS: Ht 157.5 cm; Wt 77.3 kg
[~2021-01-14 17:51] MED LIST changes: +ACETAMINOPHEN500 M1 PO
[2021-01-14 18:00] VITALS: BP 114/63; Ht 157.5 cm; Wt 77.3 kg
[2021-01-14 19:59] LABS: BILIRUBIN NEGATIVE (NEGATIVE); KETONE NEGATIVE (NEGATIVE); NITRITE NEGATIVE (NEGATIVE); UROBILINOGEN NORMAL mg/dL (< 2)
[2021-01-14 20:00] LABS: BASOPHILS 0.2 % (0-2); EOSINOPHILS 2.5 % (0-7); HEMATOCRIT 41.4 % (36.0-48.0); HEMOGLOBIN 14.2 g/dL (12-16); IMMATURE GRANULOCYTES 0.3 % (0-5); LYMPHOCYTE ABS# 5.11 10x3/uL (1.18-3.74); MCH 30.7 pg (26.0-34.0); MCHC 34.3 g/dL (31.0-37.0); MCV 89.6 fL (80.0-100.0); MEAN PLATELET VOLUME 8.8 fL (7.4-10.4); MONOCYTES 6.1 % (2-11); NEUTROPHIL ABS# 8.57 10x3/uL (1.56-6.13); NEUTROPHILS 56.9 % (40-80); PLATELET COUNT 320 10x3/uL (130-400); RBC 4.62 10x6/uL (4.00-5.40); RDW 12.8 % (11.5-14.5)
[2021-01-14 20:16] LABS: CALC OSMOLALITY 278 mosm/kg (275-300); CALCIUM 9.4 mg/dL (8.5-10.1); CARBON DIOXIDE 27.9 mmol/L (21.0-32.0); CHLORIDE - SERUM 103 mmol/L (98-107); CREATININE - SERUM 0.6 mg/dL (0.6-1.3); GLUCOSE 112 mg/dL (74-106); SODIUM 140 mmol/L (136-145); eGFR NON AFRICAN AMERICAN > 90 mL/min (90-120)
[2021-01-14 20:18] LABS: UREA NITROGEN 9 mg/dL (7-18)
[2021-01-14 20:43] LABS: ALBUMIN 3.7 g/dL (3.4-5.0); ALKALINE PHOSPHATASE 64 U/L (30-120); ALT (SGPT) 31 U/L (10-68); BILIRUBIN - TOTAL 0.23 mg/dL (0.2-1.3); HCG - QUANTITATIVE (MATERNAL) 1249 mIU/mL; PROTEIN - SERUM 7.4 g/dL (6.4-8.2)
== END 2021-01-14 22:21 | disposition home or self-care (01) ==
LOC: D.ER 17:51
PROVIDERS: Family Medicine
DX: O20.0 Threatened abortion (principal); Z3A.01 Less than 8 weeks gestation of pregnancy; R10.30 Lower abdominal pain, unspecified